=== PATIENT | female | born 1990 | race Caucasian/White ===

== ENCOUNTER 2018-07-08 03:28 | Inpatient (IN) | payer OTHER ==
[~2018-07-08] VITALS: Ht 162.6 cm; Wt 63.5 kg
--- NOTE | 2018-07-08 03:49 | NUR ---
PT BIBSELF FROM HOME FOR LT LEG PAIN/SWELLING, PT AAOX4, PT ON MONITOR, VSS, NAD NOTED, PENDING MD ARRIAGA
[2018-07-08] MEDS ORDERED: VANCOMYCIN 1 GM in IV D5W 250 ML IV ONE (04:00)
[2018-07-08] MEDS ORDERED: IV NS 0.9% 500 ML BAG IV ONE (04:00)
[2018-07-08] MEDS ORDERED: VANCOMYCIN 1 GM VIAL ONE (04:14)
[2018-07-08 04:15] LABS: BASOPHILS # (AUTO) 0.1 /CMM (0.0-0.2); BASOPHILS % (AUTO) 0.7 % (0.0-2.0); EOSINOPHILS % (AUTO) 1.7 % (0.0-6.0); HEMATOCRIT 37 % (33-45); HEMOGLOBIN 12.2 g/dL (11.5-14.8); LYMPHOCYTES # (AUTO) 1.7 /CMM (0.8-4.8); LYMPHOCYTES % (AUTO) 21.1 % (20.0-44.0); MEAN CORPUSCULAR HGB CONC 33 g/dl (31.0-36.0); MEAN CORPUSCULAR VOLUME 81 fL (82-100); MONOCYTES # (AUTO) 0.9 /CMM (0.1-1.30); MONOCYTES % (AUTO) 11.6 % (2.0-12.0); NEUTROPHILS # (AUTO) 5.3 /CMM (1.8-8.9); NEUTROPHILS % (AUTO) 64.9 % (43.0-81.0); PLATELET COUNT (AUTO) 389 /CMM (150-450); RED BLOOD CELL COUNT(AUTO) 4.56 MIL/uL (4.0-5.2); WHITE BLOOD COUNT (AUTO) 8.1 K/uL (4.3-11.0)
[2018-07-08 04:25] LABS: CALCIUM, SERUM 8.3 mg/dL (8.5-10.1); CREATININE 0.6 mg/dL (0.6-1.3); POTASSIUM 3.7 mmol/L (3.5-5.1)
[2018-07-08] MEDS ORDERED: ACETAMINOPHEN 325 MG TABLET PO ONE (04:30)
[2018-07-08] MEDS ORDERED: ACETAMINOPHEN ES 500 MG TABLET ONE (04:41)
[2018-07-08] MEDS ORDERED: diphenhydrAMINE HCL 50 MG/ML VIAL ONE (05:08)
[2018-07-08] MEDS ORDERED: IV NS 0.9% 1,000 ML IV PRN (05:22)
[2018-07-08] MEDS ORDERED: HYDROCODONE/APAP 10/325MG 1 EA TABLET PO PRN ×2 (05:30→05:45)
[2018-07-08] MEDS ORDERED: HYDROCODONE/APAP 5/325MG 1 EACH TABLET PO PRN ×2 (05:30→05:45)
[2018-07-08] MEDS ORDERED: MAG HYDROX/AL HYDROX/SIMETH 30 ML UDC PO PRN ×2 (05:30→05:45)
[2018-07-08] MEDS ORDERED: diphenhydrAMINE HCL 50 MG/ML VIAL IV ONE (05:30)
[2018-07-08] MEDS ORDERED: ACETAMINOPHEN 325 MG TABLET PO PRN ×2 (05:30→05:45)
[2018-07-08] MEDS ORDERED: MAGNESIUM HYDROXIDE 30 ML UDC PO PRN ×2 (05:30→05:45)
[2018-07-08] MEDS ORDERED: TEMAZEPAM 15 MG CAPSULE PO PRN ×2 (05:30→05:45)
[2018-07-08] MEDS ORDERED: ONDANSETRON HCL/PF 4 MG/2 ML VIAL IVP PRN ×2 (05:30→05:45)
--- NOTE | 2018-07-08 06:05 | NUR ---
MS RN NOTES: RECEIVED PATIENT FROM ER, AWAKE ALERT AND ORIENTED X4. NO COMPLAIN OF PAIN. PATIENT STATED THAT SHE IS TIRED. TOOK PICTURES OF THE LOWER EXTREMETIES WOUNDS AND RIGHT KNEE ABRASION, AND ATTACHED TO THE CHART. PATIENT IS RESTING COMFORTABLY IN BED. NO SOB. CALL LIGHT WITHIN REACH. WILL ENDORSE TO THE NEXT SHIFT RN.
[2018-07-08] MEDS ORDERED: PANTOPRAZOLE 40 MG TABLET.DR PO SCH (07:30)
[2018-07-08 08:00] VITALS: BP 128/82
--- NOTE | 2018-07-08 08:00 | NUR ---
MS RN NOTES: RECEIVED PATIENT AWAKE ALERT AND ORIENTED X4. NO COMPLAIN OF PAIN. PATIENT STATED THAT SHE IS TIRED AND IS ASLEEP MOST OF THE TIME. WITH LOWER EXTREMITIES WOUNDS AND RIGHT KNEE ABRASION, FOR WOUND CONSULT PATIENT IS RESTING COMFORTABLY IN BED. NO SOB. CALL LIGHT WITHIN REACH.
[2018-07-08] MEDS ORDERED: FEE PK DOSING 1 MIN EA MC ONE (08:08)
[2018-07-08] MEDS: PANTOPRAZOLE 40 MG TABLET.DR PO SCH (08:29)
[2018-07-08] MEDS ORDERED: ESCI10TA PO (09:56)
--- NOTE | 2018-07-08 11:00 | NUR ---
PT AWAKE AND DENIES ANY PAIN OR DISTRESS.
[2018-07-08] MEDS: IV NS 0.9% 1,000 ML IV PRN (12:14)
[2018-07-08 12:15] LABS: APPEARANCE,URINE CLEAR (CLEAR); BILIRUBIN,URINE NEGATIVE (NEGATIVE); BLOOD, URINE NEGATIVE Ery/uL (NEGATIVE); COLOR,URINE YELLOW (YELLOW); KETONES,URINE NEGATIVE (NEGATIVE); LEUKOCYTE ESTERASE ,URINE NEGATIVE (NEGATIVE); NITRITE, URINE NEGATIVE (NEGATIVE); PROTEIN,URINE NEGATIVE (NEGATIVE); UGLUCOSE NEGATIVE (NEGATIVE); UROBILINOGEN,URINE 0.2 EU/dL (0.2)
[2018-07-08] MEDS: diphenhydrAMINE HCL ELIX 25 MG/10 ML UDC PO PRN ×2 (12:39→20:24)
[2018-07-08] MEDS: VANCOMYCIN 1 GM in IV D5W 250 ML IV SCH ×2 (12:40→20:45)
[2018-07-08 16:00] VITALS: BP 122/78
--- NOTE | 2018-07-08 18:32 | NUR ---
PT RESTING IN BED DENYING ANY PAIN OR DISTRESS.CALL LIGHT PLACED WITHIN REACH.
--- NOTE | 2018-07-08 19:45 | NUR ---
RN INITIAL NOTES: RECEIVED REPORT FROM MICHAEL Winters RN. PT IN BED, AWAKE, A/O X4, ON RA RESPIRATION EVEN AND UNLABORED, DENIES ANY PAIN OR DISCOMFORT AT THIS TIME, IV ACCESS PATENT AND FLUSHING WELL, INFUSING WITH NS AT 100ML/HR. MET WITH PT'S FRIEND AT BED SIDE. ORDER TO GIVE PRN BENADRYL PRIOR TO ADMINISTERING ATB. SAFETY PRECAUTIONS FOR FALL INITIATED, CALL LIGHT IN REACH, WILL CONTINUE TO MONITOR
[2018-07-08 20:00] VITALS: BP 122/77
--- NOTE | 2018-07-08 20:00 | NUR ---
RN NOTES: NOTED LEFT KNEE SWELLING, NON PITTING, PT DENIES ANY TRAUMA, FALL ON THE AFFECTED AREA. WILL RELAY TO MD. PT DENIES ANY NUMBNESS, TINGLING SENSATION ON LEFT KNEE AND LEG. ABLE TO MOVE LEG BUT WITH ASSISTANCE, PEDAL PULSES PALPABLE AND INTACT. OFFLOADED LOCO PILLOWS.
--- NOTE | 2018-07-08 20:24 | NUR ---
PRN BENADRYL: GIVEN PRN BENADRYL PRIOR TO ADMINISTERING VANCOMYCIN, WILL ADMINISTER VANCOMYCIN IN 15MINS
[2018-07-09] MEDS: IV NS 0.9% 1,000 ML IV PRN ×2 (00:04→10:45)
[2018-07-09] MEDS: diphenhydrAMINE HCL ELIX 25 MG/10 ML UDC PO PRN ×3 (04:01→12:07)
--- NOTE | 2018-07-09 04:01 | NUR ---
prn bendaryl: administered prn benadryl prior to giving iv atb as ordered, for prevention of allergic reaction, and for c/o itching
[2018-07-09] MEDS: VANCOMYCIN 1 GM in IV D5W 250 ML IV SCH ×2 (04:30→12:28)
[2018-07-09 07:19] LABS: BASOPHILS % (AUTO) 0.7 % (0.0-2.0); EOSINOPHILS % (AUTO) 0.9 % (0.0-6.0); HEMATOCRIT 36 % (33-45); HEMOGLOBIN 11.9 g/dL (11.5-14.8); LYMPHOCYTES # (AUTO) 1.8 /CMM (0.8-4.8); MEAN CORPUSCULAR HGB CONC 33 g/dl (31.0-36.0); MEAN CORPUSCULAR VOLUME 81 fL (82-100); MONOCYTES # (AUTO) 0.7 /CMM (0.1-1.30); NEUTROPHILS # (AUTO) 4.2 /CMM (1.8-8.9); NEUTROPHILS % (AUTO) 61.4 % (43.0-81.0); PLATELET COUNT (AUTO) 366 /CMM (150-450); WHITE BLOOD COUNT (AUTO) 6.8 K/uL (4.3-11.0)
[2018-07-09 07:20] LABS: BASOPHILS # (AUTO) 0.1 /CMM (0.0-0.2)
--- NOTE | 2018-07-09 07:25 | NUR ---
rn closing notes: pt remains a/o x3 denies any pain or discomfort at thsi time, iv access remains patent and flushing well, infusing with ns at 100ml/hr. vs remains stable, needs attended, lle offloaded on pillows. safety precautions for fall remains engaged, call light in reach, will endorse to day rn for continuity of care.
--- NOTE | 2018-07-09 07:25 | NUR ---
MS RN OPENING NOTES RECEIVED PT LAYING IN BED WITH HOB ELEVATED. PT IS A/O X4, AFEBRILE. RESPIRATIONS ARE EVEN AND UNLABORED, NOT IN ANY ACUTE DISTRESS NOTED. PT DENIES ANY PAIN AT THIS TIME, NO C/O SOB, N/V. IV SITE TO RAC 18G INTACT, NO INFILTRATION NOTED. DRESSINGS KEPT CLEAN AND DRY. PT IS AMBULATORY AND ABLE TO MAKE NEEDS KNOWN. SAFETY MEASURES ARE IN PLACE. INSTRUCTED PT TO USE CALL LIGHT WHEN ASSISTANCE IS NEEDED, CALL LIGHT IS LEFT WITHIN REACH. WILL MONITOR THROUGHOUT SHIFT FOR CONTINUITY OF CARE.
[2018-07-09 07:36] LABS: CALCIUM, SERUM 8.2 mg/dL (8.5-10.1); CREATININE 0.5 mg/dL (0.6-1.3); MAGNESIUM 1.8 mg/dL (1.8-2.4); PHOSPHORUS 3.3 mg/dL (2.5-4.9); POTASSIUM 4.1 mmol/L (3.5-5.1)
[2018-07-09 08:00] VITALS: BP 114/63
[2018-07-09] MEDS: PANTOPRAZOLE 40 MG TABLET.DR PO SCH (08:07)
[2018-07-09] MEDS ORDERED: SULF1TAB48 PO (12:26)
--- NOTE | 2018-07-09 13:24 | NUR ---
MS RN NOTES-- PT SEEN AND EXAMINED BY KRISHNA HASTINGS W/ ORDERS FOR US DUPLEX LLE. ORDERS READ BACK AND VERIFIED. NOTED AND CARRIED OUT. PT MADE AWARE AND AGREED.
--- NOTE | 2018-07-09 13:51 | NUR ---
MS RN NOTES-- CALLED ULTRASOUND X3, NO ANSWER. CALLED ERGONOMIST TO LOCATE ULTRASOUND.
--- NOTE | 2018-07-09 14:06 | NUR ---
MS RN NOTES-- CALLED RADIOLOGY FOR NUMBER FOR US, CALLED RAFFI US TECH AND STATED SHE WILL COME.
--- NOTE | 2018-07-09 14:54 | NUR ---
MS RN NOTES-- NOTIFIED KRISHNA HASTINGS RE: VENOUS DUPLEX TO LLE RESULTS (NEGATIVE) WITH ORDERS FOR DISCHARGE. PT MADE AWARE AND AGREED.
[2018-07-09 16:00] VITALS: BP 117/73
--- NOTE | 2018-07-09 19:15 | NUR ---
MS CHECK OUT CLERK NOTE PT DISCHARGED TO HOME IN MEDICALLY STABLE CONDITION ACCOMPANIED BY HER FRIEND NAEL. PT IS A/O X4, AFEBRILE. RESPIRATIONS ARE EVEN AND UNLABORED, NOT IN ANY ACUTE DISTRESS NOTED. PUPILS ARE REACTIVE TO LIGHT, BILATERAL HAND VERIFY REP ARE STRONG AND EQUAL. DENIES ANY SOB, N/V. ABDOMEN IS SOFT AND NONDISTENDED, BOWEL SOUNDS ARE PRESENT IN ALL 4 QUADRANTS UPON AUSCULTATION. DENIES ANY BLADDER DISCOMFORT. BLE NOTED WITH SCABS, PICTURES TAKEN AND PLACED IN CHART. EXPLAINED DISCHARGE PAPERWORK TO PT WITH VERBAL AND WRITTEN UNDERSTANDING. PRESCRIPTION SENT WITH PT WELL ALL BELONGINGS. IV ACCESS REMOVED, APPLIED PRESSURE AND TOLERATED WELL. ID BANDS REMOVED. ACCOMPANIED PT TO PERSONAL VEHICLE VIA WC IN STABLE CONDITION.
== END 2018-07-09 19:15 | disposition home or self-care (01) | DRG 383 ==
LOC: ER 03:30 → MEDSG2 05:48
PROVIDERS: ADMIT Nurse Practitioner Acute Care; ATTEND Nurse Practitioner Acute Care
DX: L03.116 Cellulitis of left lower limb (principal); F11.10 Opioid abuse, uncomplicated; F17.210 Nicotine dependence, cigarettes, uncomplicated; J45.909 Unspecified asthma, uncomplicated
CPT/HCPCS: 36415; 80048-TC; 80202-TC; 80305; 81000-TC; 83605-TC; 83735-TC; 84100-TC; 84702-TC; 85025-TC; 85730-TC; 87040-TC; 87081-TC; 93971-TC; G0378; J1200; J3370; J7030; J7040; J7060; Q0163